=== PATIENT | male | born 1945 | race African-American/Black ===

== ENCOUNTER 2019-03-24 14:20 | Emergency (ER) | payer MEDICARE, OTHER ==
[~2019-03-24] VITALS: Ht 177.8 cm; Wt 75.0 kg
[2019-03-24 14:59] LABS: HEMATOCRIT. 21.1 % (42.0-52.0); HEMOGLOBIN. 7.1 g/dL (14.0-18.0); MEAN CORPUSCULAR HEMOGLOBIN 33.2 pg (28.0-32.0); MEAN PLATELET VOLUME 9.9 fl (7.4-10.4); RED BLOOD CELL COUNT 2.14 mill/uL (4.7-6.1)
[2019-03-24 15:05] LABS: CHLORIDE 109 mEq/L (98-107)
[2019-03-24 15:11] LABS: PLATELET 44 x1000/uL (130-400)
[2019-03-24] MEDS ORDERED: LEVOFLOXACIN 750MG PREMIX 150 ML IV ONE (15:45)
[2019-03-24] MEDS ORDERED: PIPERACILLIN/TAZ 3.375G PREMIX 50 ML IV ONE (15:45)
[2019-03-24] MEDS ORDERED: IOHEXOL-350 100 ML BOTTLE ONE (16:34)
[2019-03-24 16:54] VITALS: BP 119/71
[2019-03-24 17:13] LABS: PLATELET ESTIMATE MARKEDLY DECREASED
[2019-03-24] MEDS ORDERED: ACETAMINOPHEN 325MG TABLET PO PRN (18:00)
[2019-03-24] MEDS ORDERED: PIPERACILLIN/TAZ 3.375G PREMIX 50 ML IV SCH (18:00)
[2019-03-24] MEDS ORDERED: ONDANSETRON HCL 4MG/2ML INJ IV PRN (18:00)
[2019-03-24] MEDS ORDERED: GUAIFENESIN 200MG/10ML SUGAR FREE UDC PO PRN (18:00)
[2019-03-24] MEDS ORDERED: MAGNESIUM/ALUMINUM HYDROXIDE/SIMETHICONE 30ML UDC PO PRN (18:00)
[2019-03-24] MEDS ORDERED: DOCUSATE SODIUM 100MG CAPSULE PO PRN (18:00)
[2019-03-24] MEDS ORDERED: IPRATROPIUM/ALBUTEROL 0.5-3(2.5)MG/3ML NEB NEB PRN (18:00)
[2019-03-24] MEDS ORDERED: CLONIDINE 0.1MG TABLET PO PRN (18:00)
== END 2019-03-24 17:50 | disposition home or self-care (01) ==
LOC: ER 14:20 → EDBEDREQ 16:28 → CANBEDREQ 17:30 → SUPCPDRO 17:45 → ER 17:50
DX: J18.9 Pneumonia, unspecified organism (principal); J90 Pleural effusion, not elsewhere classified
CPT/HCPCS: 36415; 71045; 71275; 80053; 83880; 84484; 85025; 99284; Q9967